=== PATIENT | female | born 1950 | race Caucasian/White ===

== ENCOUNTER 2016-09-27 23:00 | Inpatient (IN) | payer MEDICARE, OTHER ==
--- NOTE | ~2016-09-27 | HP ---
History And Physical [address] [address] NAME: ANN DEGROOT : 50 STATUS : ADM Mello PAT#: [id number] AGE: 66 ADM/REG DATE : 09/27/16 MR#: [id number] REPORT SERV DATE: 09/30/16 DICTATED BY: ADALID EDMONDSON DATE: 09/28/16 REPORT STATUS : Draft TRANSCRIBED BY: MODL DATE: 09/28/16 DATE OF ADMISSION: 09/27/2016 CHIEF COMPLAINT: A 66-year-old female presenting with nausea and vomiting. HISTORY OF PRESENT ILLNESS: The patient's history was obtained through careful interview with the patient coupled with review of [facility] medical records. The patient began to have nausea and vomiting around 09/21/2016. She has been trying to control this symptom, but it finally became so severe that she felt she had to come to the hospital for further evaluation. She describes intermittent diarrhea as well. No blood in stool or vomit. She describes abdominal pain, epigastric, radiating down toward the umbilicus, a cramping quality up to 8/10 severity. She has had subjective fevers and chills, severe diaphoresis. She describes slight shortness of breath. No cough. No chest pain. She has had a mild intermittent headache. She describes her rheumatoid arthritis is under poor control. REVIEW OF SYSTEMS: Otherwise, a 14-point review of systems was obtained was negative. PAST MEDICAL HISTORY: 1. Gastroparesis, seen by Dr. Martinez. 2. COPD/asthma seen by Dr. Thomas. 3. Hypertension. 4. Irritable bowel syndrome. 5. Gastroesophageal reflux disorder with hiatal hernia. 6. Rheumatoid arthritis/lupus seen by Dr. Pierce. 7. Elevated cholesterol. 8. Hepatitis a remotely. 9. Colon polyps. 10.ESBL Escherichia coli urinary tract infection. 11.Colitis. 12.Anxiety. PAST SURGICAL HISTORY: 1. Cervical spine surgery. 2. Lumbar spine surgery. 3. Left hip surgery. History And Physical [address] [address] NAME: ANN DEGROOT : 50 STATUS : ADM Mello PAT#: [id number] AGE: 66 ADM/REG DATE : 09/27/16 MR#: [id number] REPORT SERV DATE: 09/30/16 DICTATED BY: ADALID EDMONDSON DATE: 09/28/16 REPORT STATUS : Draft TRANSCRIBED BY: LAMONT DATE: 09/28/16 4. Cholecystectomy. 5. Appendectomy. 6. Right ankle surgery. ALLERGIES: TO PENICILLIN, NONSTEROIDAL ANTIINFLAMMATORY DRUGS, DROPERIDOL, AND SULFA MEDICATIONS. SOCIAL HISTORY: Quit smoking remotely. No alcohol abuse. Has been living with her common- law for 26 years. He is in good health. They live in [place], [place]. The patient has two grandchildren. FAMILY HISTORY: She had a son who was murdered. A strong family history of heart disease, cancer, and diabetes. CURRENT MEDICATIONS: Include: 1. Albuterol inhaler. 2. Xanax 1 mg p.o. four times a day. 3. Norvasc 10 mg p.o. daily. 4. Iron supplement. 5. Folic acid. 6. Coreg 12.5 mg p.o. b.i.d. 7. Vitamin B12. 8. Flexeril p.o. t.i.d. 9. Nexium 20 mg p.o. b.i.d. 10.Diflucan. 11.Prozac 40 mg p.o. daily. 12.Flonase. 13.Advair, inhaled twice a day. 14.Lasix 20 mg on Friday, Friday, and Friday. 15. 300 mg p.o. t.i.d. 16.Reglan. 17.Singulair 10 mg p.o. daily. 18.Zofran. 19.Endocet one tablet p.o. four times a day scheduled. 20.Potassium 20 mEq p.o. t.i.d. 21.Phenergan. 22.Sucralfate 1 g before meals and at bedtime. 23.Trazodone 100 mg at bedtime. 24.Incruse Ellipta inhaled daily. PHYSICAL EXAMINATION: VITAL SIGNS: Temperature 99.2, pulse 93, blood pressure 153/80, O2 sat 95% on room air. GENERAL: A pleasant, cooperative female who has some distress from her abdominal pain, nausea. HEENT: Pupils equal, round, and reactive to light. No conjunctival pallor. No scleral icterus. Nares are patent. Oropharynx is clear of obstruction. She has moist mucous membranes. History And Physical [address] [place]. [address] NAME: ANN DEGROOT : 50 STATUS : ADM Mello PAT#: [id number] AGE: 66 ADM/REG DATE : 09/27/16 MR#: [id number] REPORT SERV DATE: 09/30/16 DICTATED BY: ADALID EDMONDSON DATE: 09/28/16 REPORT STATUS : Draft TRANSCRIBED BY: LAMONT DATE: 09/28/16 NECK: Trachea midline. No thyromegaly. LYMPH: No cervical lymphadenopathy. No supraclavicular lymphadenopathy. No inguinal lymphadenopathy. RESPIRATORY: Clear to auscultation at bases. No wheezes, rales, or rhonchi. Normal respiratory effort. CARDIOVASCULAR: Regular rate and rhythm. No murmurs, rubs, or gallops. No extremity edema is appreciated. ABDOMEN: Significant epigastric abdominal pain but no guarding, no rebound. Nondistended. No hepatosplenomegaly. DERMATOLOGICAL: Warm and dry extremities. No pallor. No cyanosis. PSYCHIATRIC: Normal affect. Good mood. Alert and oriented x3. LABORATORY DATA: White blood cell count 11.2, hemoglobin 16, hematocrit 46, platelets 454. Sodium 135, potassium 4.3, chloride 102, bicarb 19, BUN 5, creatinine 0.7, glucose 164. Liver enzymes within normal limits. Lipase 85. ASSESSMENT AND PLAN: #, 1. Gastroparesis exacerbation, placed on IV Reglan, provide supportive care. 2. Diarrhea. Check Clostridium difficile toxin. 3. Rheumatoid arthritis. Check ESR, CRP. 4. Chronic obstructive pulmonary disease. Place on DuoNeb nebulizers. KPL/MODL Adalid Edmondson M.D. / [id number] CC: MD Parveen Aldrich M.D.
--- NOTE | ~2016-09-27 | DS ---
Discharge Summary [facility] [address] [place]. [address] NAME: ANN HOWELL : 50 STATUS : DIS IN PAT#: [id number] AGE: 66 ADM/REG DATE : 09/29/16 MR#: [id number] REPORT SERV DATE: 10/03/16 DICTATED BY: STONE RICHARDS DATE: 10/02/16 REPORT STATUS : Draft TRANSCRIBED BY: MODL DATE: 10/02/16 ADMISSION DATE: 09/29/2016 DISCHARGE DATE: 10/02/2016 REASON FOR ADMISSION: Abdominal pain, nausea, vomiting, gastroparesis exacerbation. HPI: Please refer Dr. Purcell's history and physical dated 09/28/2016 for complete details regarding the patient's admission. The patient was admitted to the Hospitalist Service for management of gastroparesis. HOSPITAL COURSE: The patient had an un complicated hospital course. She is benzo and narcotic dependent. She presented with nausea, vomiting, abdominal pain which had quickly resolved. KUB was obtained on 09/30/2016 which showed some increased gas in the colon, but no obstruction. Dr. Alvarenga had taken care of the patient for the first couple of days and I assumed care of this patient on 10/01/2016 at which point, her nausea, vomiting, and abdominal pain had resolved. She was on IV Reglan. She was tolerating regular diet. Discharge has been delayed because she was developing this leukocytosis of unknown etiology, got as high as 18,000. A procalcitonin level was unremarkable. UA was unremarkable. No sign of infection. She did have a very small ulcer that was healing on her upper back area, but certainly would not have been the cause of leukocytosis of 18,000. We continued to recheck CBCs and her white count is down to 11,000. It is resolving on its own without any intervention. Her leukocytosis is unclear as to what was the cause of leukocytosis, but at any rate she has reached maximal hospitalization. She is not febrile. She is nontoxic appearing and is requesting to go home. She will be discharged home today in a stable condition. DISCHARGE DIAGNOSES: 1. Gastroparesis exacerbation, now resolved. 2. Leukocytosis of unclear etiology, now resolving. 3. Diarrhea, pre admission, now resolved. 4. Hypokalemia, resolved. 5. Rheumatoid arthritis, stable. 6. Chronic obstructive pulmonary disease without exacerbation, stable. 7. Chronic benzo and narcotic dependency, stable. PROCEDURES: Include KUB. DISCHARGE MEDICATIONS: Include Linzess 145 mcg twice a day, Xanax 1 mg four times a day, amlodipine 10 mg at bedtime, Coreg 12.5 mg twice a day, vitamin D every 30 days, Flexeril 10 mg three times a day, Prozac 40 mg daily, Neurontin 300 mg three times a day, Reglan 10 mg p.r.n., montelukast 10 mg at bedtime, Nexium 20 mg twice a day, Phenergan 25 mg p.r.n., Carafate p.r.n., trazodone 100 mg at bedtime, Advair 500/50 one puff twice a day, Incruse Ellipta 1 puff daily, Ferrocite daily, Zofran p.r.n., Lasix p.r.n. swelling, Endocet 4 times a day scheduled for pain, K-Dur 20 mEq three times a day, fluticasone, albuterol. The patient was discharged today in a stable condition. She will be discharged home. She Discharge Summary [address] [address] NAME: ANN HOWELL : 50 STATUS : DIS IN PAT#: [id number] AGE: 66 ADM/REG DATE : 09/29/16 MR#: [id number] REPORT SERV DATE: 10/03/16 DICTATED BY: STONE RICHARDS DATE: 10/02/16 REPORT STATUS : Draft TRANSCRIBED BY: LAMONT DATE: 10/02/16 will follow up with her PCP. This is Dr. Stone Richards, spending over 30 minutes in discharge planning and coordination of care on Ms. Howell. CHLOE/LAMONT Stone Richards MD / [id number] CC: MD Parveen Cain M.D.
[~2016-09-27 23:00] MED LIST: ACCUNEB INH; ADVAIR INH; ALLERGY INJECTION SC; AMITIZA8 MCG PO; ASTELIN NAS; ASTEPRO0.15 % NAS; BENTYL10; BISR PR; CLEOCIN300 MG PO; COMBIVENT INH; COMP10B PO; COMP25R PR; COREG12 PO; COZ50 PO; DIAZIDE; FERROCITE PO; FLONASE NAS; FORTEO SC; IMITREX100 MG PO; KLOR-CON M2020 MEQ PO; L20 PO; LIBRAX PO; LIPITOR10 PO; LIPITOR40 PO; LORTAB10 PO; MACROBID PO; MAX25 PO; MORPHINE 15 MG TAB PO; MSCONT15 PO; NASONEX NAS; NEUR300 PO; NEXIUM40 PO; NORV10 PO; PCET PO; PR25 PO; PROAIR HFA INH; PROVENTSOL INH; PROZAC PO; PROZAC40 MG PO; PROZLIQ PO; REG PO; RESTASIS OPH; SINGULAIR1 PO; SPIRIVA INH; TRAZ100 PO; VALTREX1 GM PO; VALTREX5 PO; XANAX1 MG PO; XOPEN0.5ML INH; ZOFRAN8 PO; ZYRTEC ALLGY10 MG PO
[2016-09-28 02:16] LABS: ASCORBIC ACID (UR NOT ORDER) NEG (NEG); BILIRUBIN, URINE NEGATIVE (NEG); ER URINALYSIS TAT 0 Hrs 12 Mins; KETONE, URINE NEGATIVE (NEG); LEUKOCYTE ESTERASE(NOT OR NEG (NEG); NITRITE (URINE) NEG (NEG); WBC (NOT ORDERED) (RFLEX) 1 (0-5)
[2016-09-28 02:18] LABS: BASOPHILS 0.1 %; BASOPHILS ABSOLUTE 0.01 10/3/uL (0.0-0.16); EOSINOPHILS 0.1 %; EOSINOPHILS ABSOLUTE 0.01 10/3/uL (0.0-0.53); IMMATURE GRANULOCYTES 0.7 %; IMMATURE GRANULOCYTES ABSOLUTE 0.08 10/3/uL (0.0-0.11); LYMPHOCYTES 12.4 %; LYMPHOCYTES ABSOLUTE 1.39 10/3/uL (0.67-4.30); MEAN CORPUS HGB CONC 34.8 g/dL (32.0-36.0); MEAN CORPUSCULAR VOLUME 83.4 fL (80-100); MONOCYTES 4.7 %; MONOCYTES ABSOLUTE 0.53 10/3/uL (0.21-1.20); PLATELET COUNT 454 10/3/uL (150-400); RBC DISTRIBUTION WIDTH 14.3 % (12.0-16.0); RED CELL COUNT 5.55 10/6/uL (4.0-5.6)
[2016-09-28 02:21] LABS: HEMATOCRIT 46.3 % (36.0-48.0); HEMOGLOBIN 16.1 g/dL (12.0-16.0); MANUAL DIFF NO %; WHITE BLOOD CELLS 11.2 10/3/uL (4.5-10.5)
[2016-09-28 02:34] LABS: A/G RATIO 0.8 (0.7-1.9); ALBUMIN 3.8 G/DL (3.5-5.0); ALKALINE PHOSPHATASE 155 U/L (45-117); BUN (BLOOD UREA NITROGEN) 5 MG/DL (6-23); CALCIUM, SERUM 9.8 MG/DL (8.5-10.4); CHLORIDE, SERUM 102 MMOL/L (96-112); CO2 (CARBON DIOXIDE) 19 MMOL/L (24-34); GFR AFRICAN AMERICAN 105 ML/MIN (>=60); GFR NON AFRICAN AMERICAN 90 ML/MIN (>=60); GLOBULIN 4.8 G/DL (2.5-4.1); GLUCOSE, SERUM 164 MG/DL (60-99); POTASSIUM, SERUM 4.3 MMOL/L (3.5-5.3); SGOT(AST) 7 U/L (5-40); SGPT(ALT) 10 U/L (5-65); SODIUM, SERUM 135 MMOL/L (135-148); TOTAL BILIRUBIN 0.3 MG/DL (0-1.2); TOTAL PROTEIN 8.6 G/DL (6.0-8.5)
[2016-09-28] MEDS ORDERED: REG PO (04:33)
[2016-09-28] MEDS ORDERED: INCRUSE ELLI62.5 MCG INH (04:34)
[2016-09-28] MEDS ORDERED: SUCR PO (04:34)
[2016-09-28] MEDS ORDERED: NEXIUM20 M1 PO (04:35)
[2016-09-28] MEDS ORDERED: FERROCITE PO (04:35)
[2016-09-28] MEDS ORDERED: FLEX PO (04:35)
[2016-09-28] MEDS ORDERED: COREG12 PO (04:35)
[2016-09-28] MEDS ORDERED: B121000P IM/SC (04:36)
[2016-09-28] MEDS ORDERED: PR25 PO (04:36)
[2016-09-28] MEDS ORDERED: TRAZ100 PO (04:36)
[2016-09-28] MEDS ORDERED: SINGULAIR1 PO (04:37)
[2016-09-28] MEDS ORDERED: FLUCON150 PO (04:37)
[2016-09-28] MEDS ORDERED: L20 PO (04:37)
[2016-09-28] MEDS ORDERED: ZOFRANODT8 SL (04:37)
[2016-09-28] MEDS ORDERED: XANAX1 MG PO (04:38)
[2016-09-28] MEDS ORDERED: ENDOCET1 TA1 PO (04:38)
[2016-09-28] MEDS ORDERED: NORV10 PO (04:38)
[2016-09-28] MEDS ORDERED: NEUR300 PO (04:39)
[2016-09-28] MEDS ORDERED: ADVAIR INH (04:39)
[2016-09-28] MEDS ORDERED: KDUR20 PO (04:39)
[2016-09-28] MEDS ORDERED: PROZAC40 MG PO (04:40)
[2016-09-28] MEDS ORDERED: FLONASE NAS (04:41)
[2016-09-28] MEDS ORDERED: VENTOLIN HFA INH (04:42)
[2016-09-28 12:39] LABS: BASOPHILS 0.1 %; BASOPHILS ABSOLUTE 0.02 10/3/uL (0.0-0.16); EOSINOPHILS 0.3 %; EOSINOPHILS ABSOLUTE 0.04 10/3/uL (0.0-0.53); HEMOGLOBIN 13.7 g/dL (12.0-16.0); IMMATURE GRANULOCYTES 1.1 %; IMMATURE GRANULOCYTES ABSOLUTE 0.16 10/3/uL (0.0-0.11); LYMPHOCYTES ABSOLUTE 2.99 10/3/uL (0.67-4.30); MEAN CORPUS HGB CONC 34.3 g/dL (32.0-36.0); MEAN CORPUSCULAR VOLUME 84.5 fL (80-100); MEAN PLATELET VOLUME 8.7 fL (9.2-13.0); MONOCYTES 12.6 %; MONOCYTES ABSOLUTE 1.88 10/3/uL (0.21-1.20); NEUTROPHILS 65.9 %; NEUTROPHILS ABSOLUTE 9.88 10/3/uL (2.02-8.40); PLATELET COUNT 389 10/3/uL (150-400); RBC DISTRIBUTION WIDTH 14.6 % (12.0-16.0); RED CELL COUNT 4.72 10/6/uL (4.0-5.6)
[2016-09-28 12:41] LABS: HEMATOCRIT 39.9 % (36.0-48.0); MANUAL DIFF NO %
[2016-09-28 12:46] LABS: PARTIAL THROMBO TIME 29.7 SEC (22.5-37.2); PROTIME (NOT ORD) 13.3 SEC (12.0-14.5)
[2016-09-28 12:58] LABS: C-REACTIVE PROTEIN 4.3 MG/L (<8.0)
[2016-09-28 13:01] LABS: A/G RATIO 0.8 (0.7-1.9); ALBUMIN 3.3 G/DL (3.5-5.0); ALKALINE PHOSPHATASE 123 U/L (45-117); BUN (BLOOD UREA NITROGEN) 5 MG/DL (6-23); CALCIUM, SERUM 8.5 MG/DL (8.5-10.4); CHLORIDE, SERUM 102 MMOL/L (96-112); CO2 (CARBON DIOXIDE) 23 MMOL/L (24-34); CREATININE 0.65 MG/DL (0.55-1.02); GFR AFRICAN AMERICAN 107 ML/MIN (>=60); GFR NON AFRICAN AMERICAN 93 ML/MIN (>=60); GLOBULIN 4.1 G/DL (2.5-4.1); GLUCOSE, SERUM 105 MG/DL (60-99); SGOT(AST) 6 U/L (5-40); SGPT(ALT) 11 U/L (5-65); SODIUM, SERUM 133 MMOL/L (135-148); TOTAL BILIRUBIN 0.2 MG/DL (0-1.2); TOTAL PROTEIN 7.4 G/DL (6.0-8.5)
[2016-09-28 14:09] LABS: SED RATE 16 MM/HR (0-20)
[2016-09-30 06:22] LABS: BASOPHILS 0.2 %; BASOPHILS ABSOLUTE 0.04 10/3/uL (0.0-0.16); EOSINOPHILS 1.5 %; EOSINOPHILS ABSOLUTE 0.27 10/3/uL (0.0-0.53); HEMATOCRIT 40.2 % (36.0-48.0); HEMOGLOBIN 13.4 g/dL (12.0-16.0); IMMATURE GRANULOCYTES 0.4 %; IMMATURE GRANULOCYTES ABSOLUTE 0.08 10/3/uL (0.0-0.11); LYMPHOCYTES 14.9 %; LYMPHOCYTES ABSOLUTE 2.76 10/3/uL (0.67-4.30); MEAN CORPUS HGB CONC 33.3 g/dL (32.0-36.0); MEAN CORPUSCULAR HEMOGLOB 28.8 pg (26.0-34.0); MEAN CORPUSCULAR VOLUME 86.3 fL (80-100); MEAN PLATELET VOLUME 8.6 fL (9.2-13.0); MONOCYTES 9.5 %; MONOCYTES ABSOLUTE 1.77 10/3/uL (0.21-1.20); NEUTROPHILS 73.5 %; NEUTROPHILS ABSOLUTE 13.64 10/3/uL (2.02-8.40); PLATELET COUNT 350 10/3/uL (150-400); RBC DISTRIBUTION WIDTH 14.9 % (12.0-16.0); RED CELL COUNT 4.66 10/6/uL (4.0-5.6); WHITE BLOOD CELLS 18.6 10/3/uL (4.5-10.5)
[2016-09-30 06:23] LABS: MANUAL DIFF NO %
[2016-09-30 06:36] LABS: BUN (BLOOD UREA NITROGEN) 4 MG/DL (6-23); CALCIUM, SERUM 8.2 MG/DL (8.5-10.4); CHLORIDE, SERUM 106 MMOL/L (96-112); CO2 (CARBON DIOXIDE) 26 MMOL/L (24-34); CREATININE 0.53 MG/DL (0.55-1.02); GFR AFRICAN AMERICAN 115 ML/MIN (>=60); GFR NON AFRICAN AMERICAN 99 ML/MIN (>=60); GLUCOSE, SERUM 95 MG/DL (60-99)
[2016-09-30 06:37] LABS: POTASSIUM, SERUM 3.1 MMOL/L (3.5-5.3); SODIUM, SERUM 140 MMOL/L (135-148)
[2016-09-30 13:41] LABS: PROCALCITONIN <0.05 ng/mL (<0.5)
[2016-09-30 14:17] LABS: C-REACTIVE PROTEIN 46.7 MG/L (<8.0)
[2016-10-01 13:36] LABS: BASOPHILS 0.1 %; BASOPHILS ABSOLUTE 0.02 10/3/uL (0.0-0.16); EOSINOPHILS 1.5 %; EOSINOPHILS ABSOLUTE 0.23 10/3/uL (0.0-0.53); HEMATOCRIT 38.5 % (36.0-48.0); HEMOGLOBIN 12.7 g/dL (12.0-16.0); IMMATURE GRANULOCYTES 0.3 %; IMMATURE GRANULOCYTES ABSOLUTE 0.05 10/3/uL (0.0-0.11); LYMPHOCYTES 15.2 %; MEAN CORPUSCULAR HEMOGLOB 28.7 pg (26.0-34.0); MEAN CORPUSCULAR VOLUME 86.9 fL (80-100); MEAN PLATELET VOLUME 9.1 fL (9.2-13.0); MONOCYTES 7.3 %; MONOCYTES ABSOLUTE 1.15 10/3/uL (0.21-1.20); NEUTROPHILS 75.6 %; NEUTROPHILS ABSOLUTE 11.93 10/3/uL (2.02-8.40); PLATELET COUNT 385 10/3/uL (150-400); RBC DISTRIBUTION WIDTH 14.7 % (12.0-16.0); RED CELL COUNT 4.43 10/6/uL (4.0-5.6); WHITE BLOOD CELLS 15.8 10/3/uL (4.5-10.5)
[2016-10-01 13:40] LABS: MANUAL DIFF NO %
[2016-10-01 13:57] LABS: BUN (BLOOD UREA NITROGEN) 5 MG/DL (6-23); CALCIUM, SERUM 7.9 MG/DL (8.5-10.4); CHLORIDE, SERUM 107 MMOL/L (96-112); CO2 (CARBON DIOXIDE) 25 MMOL/L (24-34); CREATININE 0.45 MG/DL (0.55-1.02); GFR AFRICAN AMERICAN 121 ML/MIN (>=60); GFR NON AFRICAN AMERICAN 104 ML/MIN (>=60); POTASSIUM, SERUM 3.5 MMOL/L (3.5-5.3); SODIUM, SERUM 139 MMOL/L (135-148)
[2016-10-01 13:58] LABS: GLUCOSE, SERUM 117 MG/DL (60-99)
[2016-10-01 13:59] LABS: PHOSPHORUS, SERUM 1.3 MG/DL (2.5-4.5)
[2016-10-02 06:03] LABS: BASOPHILS 0.3 %; BASOPHILS ABSOLUTE 0.03 10/3/uL (0.0-0.16); EOSINOPHILS 3.4 %; HEMATOCRIT 38.4 % (36.0-48.0); HEMOGLOBIN 12.6 g/dL (12.0-16.0); IMMATURE GRANULOCYTES 0.3 %; IMMATURE GRANULOCYTES ABSOLUTE 0.04 10/3/uL (0.0-0.11); LYMPHOCYTES 20.1 %; LYMPHOCYTES ABSOLUTE 2.39 10/3/uL (0.67-4.30); MEAN CORPUS HGB CONC 32.8 g/dL (32.0-36.0); MEAN CORPUSCULAR HEMOGLOB 28.6 pg (26.0-34.0); MEAN CORPUSCULAR VOLUME 87.1 fL (80-100); MONOCYTES 7.5 %; MONOCYTES ABSOLUTE 0.89 10/3/uL (0.21-1.20); NEUTROPHILS 68.4 %; NEUTROPHILS ABSOLUTE 8.15 10/3/uL (2.02-8.40); PLATELET COUNT 386 10/3/uL (150-400); RBC DISTRIBUTION WIDTH 14.7 % (12.0-16.0); RED CELL COUNT 4.41 10/6/uL (4.0-5.6); WHITE BLOOD CELLS 11.9 10/3/uL (4.5-10.5)
[2016-10-02 06:04] LABS: MANUAL DIFF NO %
[2016-10-02 06:30] LABS: BUN (BLOOD UREA NITROGEN) 6 MG/DL (6-23); CALCIUM, SERUM 8.4 MG/DL (8.5-10.4); CHLORIDE, SERUM 110 MMOL/L (96-112); CO2 (CARBON DIOXIDE) 25 MMOL/L (24-34); CREATININE 0.42 MG/DL (0.55-1.02); GFR AFRICAN AMERICAN 124 ML/MIN (>=60); GFR NON AFRICAN AMERICAN 107 ML/MIN (>=60); GLUCOSE, SERUM 103 MG/DL (60-99); PHOSPHORUS, SERUM 1.7 MG/DL (2.5-4.5); POTASSIUM, SERUM 3.6 MMOL/L (3.5-5.3); SODIUM, SERUM 142 MMOL/L (135-148)
== END 2016-10-02 13:35 | disposition home or self-care (01) | DRG 392 ==
LOC: ER 23:00 → 4SO 23:59
PROVIDERS: Hospitalist; Internal Medicine; Nurse Practitioner
DX: K31.84 Gastroparesis (principal); J44.9 Chronic obstructive pulmonary disease, unspecified; L98.429 Non-pressure chronic ulcer of back with unspecified severity; F19.20 Other psychoactive substance dependence, uncomplicated; T40.2X5A Adverse effect of other opioids, initial encounter; I10 Essential (primary) hypertension; K58.9 Irritable bowel syndrome, unspecified; M06.9 Rheumatoid arthritis, unspecified; K21.9 Gastro-esophageal reflux disease without esophagitis; K44.9 Diaphragmatic hernia without obstruction or gangrene; E78.00 Pure hypercholesterolemia, unspecified; Z86.010 Personal history of colon polyps; F41.9 Anxiety disorder, unspecified; Z88.0 Allergy status to penicillin; Z88.8 Allergy status to other drugs, medicaments and biological substances; Z88.2 Allergy status to sulfonamides; Z87.891 Personal history of nicotine dependence; Z79.891 Long term (current) use of opiate analgesic; D72.829 Elevated white blood cell count, unspecified; E87.6 Hypokalemia
CPT/HCPCS: 74000; 80048; 80053; 81001; 82150; 82962; 83036; 83605; 83690; 83735; 84100; 84132; 84145; 84443; 85025; 85610; 85652; 85730; 86140; 94640; 96374; 96375; 99285; A9270-GY; J2405; J2550; J2765

== ENCOUNTER 2016-11-03 19:02 | Inpatient (IN) | payer MEDICARE, OTHER ==
--- NOTE | ~2016-11-03 | CN ---
Consultation Report [facility] [address] [place]. [address] NAME: ANN HOWELL : 50 STATUS : ADM IN PAT#: [id number] AGE: 66 ADM/REG DATE : 11/04/16 MR#: [id number] REPORT SERV DATE: 11/04/16 DICTATED BY: JUAN A MCGOWAN DATE: 11/04/16 REPORT STATUS : Draft TRANSCRIBED BY: MODL DATE: 11/04/16 GI CONSULTATION DATE OF CONSULTATION: 11/04/2016 REASON FOR CONSULTATION: Evaluation and management of nausea, vomiting, epigastric abdominal pain, diarrhea, intermittent coffee-grounds emesis. HISTORY OF PRESENT ILLNESS: Ms. Ann Howell is a 66-year-old female patient, who is known to Dr. Liz Martinez in the outpatient setting, who presents to [facility] with a chief complaint of nausea, vomiting, diarrhea, epigastric pain, intermittent coffee- grounds emesis. She has a history of hypertension, COPD, hiatal hernia, GERD, gastroparesis, anxiety, and rheumatoid arthritis. She came in to [facility] on 11/03/2016 with a chief complaint of nausea, vomiting, diarrhea, and epigastric pain. She states that her symptoms have been ongoing for three to four weeks. She states that she came in for "relief." She states that she has epigastric abdominal pain which she states is chronically present, but over the past few weeks has been intractable and severe in nature. She has had associated nausea with vomiting. Initially, she states that her emesis is bilious. She states that she does have intermittent coffee-ground material. The last time she passed any coffee-ground, she states was one day "last week." She has had diarrhea, but she states that her diarrhea is not melena or no hematochezia intermixed with that. She states that her diarrhea had a terrible odor to it as well as she has experienced some dysuria. She had a CT scan on admission, which did not show any acute GI abnormality. She has not had any further diarrhea, nausea, or vomiting since being admitted. She is somewhat somnolent this morning. I can awaken her. She answer some of my questions, but will fall asleep mid sentence. She states that she feels somewhat better. I have discussed with her that we will plan on upper endoscopy on 11/05/2016. I did discuss the risks, benefits, alternatives, complications with her to include, but not limited to risk of bleeding, perforation, infection, reaction to medication as well as cardiac and pulmonary side effects. She is agreeable to proceed. Her last EGD was done by Dr. Benitez inpatient in 03/2015 that showed normal esophagus, hiatal hernia, which was small in size with normal mucosa in the entire stomach which she biopsied. Normal examined duodenum, which she also biopsied. She did undergo a colonoscopy same day showing erythema of the TI, status post biopsy. Normal mucosa in the entire colon which was biopsied. She had two polyps in the transverse colon that were removed and biopsied. Pathology from that exam, the duodenum was normal with no evidence of celiac stomach. H. pylori negative. Antral and fundic mucosa with mild chronic gastritis seen. No metaplasia or dysplasia. Terminal ileum showed mild active ileitis, no granulomas. Colon biopsies which were random and within normal limits, and the polyps were tubular adenoma without high-grade dysplasia. Differential diagnosis for her with active ileitis includes NSAID-related injury versus Crohn. PAST MEDICAL HISTORY: She has a past medical history that is positive for hypertension, COPD, small hiatal hernia, colon polyps, GERD, anxiety, rheumatoid arthritis, gastroparesis, irritable bowel syndrome, elevated cholesterol, ESBL, UTI, and colitis. Consultation Report [address] [place]. [address] NAME: ANN HOWELL : 50 STATUS : [facility]#: [id number] AGE: 66 ADM/REG DATE : 11/04/16 MR#: [id number] REPORT SERV DATE: 11/04/16 DICTATED BY: JUAN A MCGOWAN DATE: 11/04/16 REPORT STATUS : Draft TRANSCRIBED BY: MODElvin DATE: 11/04/16 SURGICAL HISTORY: Cervical spine surgery, lumbar spine surgery, left hip surgery, cholecystectomy, appendectomy, right ankle surgery. SOCIAL HISTORY: Past tobacco. No alcohol. No illicits. Lives independently with her common-law . FAMILY HISTORY: Noncontributory from a GI standpoint. ALLERGIES: LISTED TO AMOXICILLIN, NSAIDS, AUGMENTIN, CEFTAZIDIME, ADHESIVE, AND DROPERIDOL. HOME MEDICATIONS: Xanax, Norvasc, Ferrocite, Coreg, Duricef, vitamin B12, Nexium, Advair, Neurontin, Levsin, Cozaar, Reglan, Zofran, Endocet, Compazine, Phenergan, Desyrel, and Incruse Ellipta. REVIEW OF SYSTEMS: Somewhat limited secondary to the patient's groggy state. PHYSICAL EXAMINATION: VITAL SIGNS: Temperature 97.8, pulse 77, respirations 16, blood pressure 135/71. NEURO: Reveals a somnolent female, resting in bed. She does awaken and answer questions. She is groggy and falls back asleep multiple times during assessment. GENERAL: She is cooperative when she is awake. She is in no acute distress. She knows who she is, where she is, and the year. HEAD, EARS, EYES, NOSE, AND THROAT: Anicteric. Pupils equal, round, reactive to light and accommodation. Normocephalic, atraumatic. NECK: No JVD. No palpable nodes. LUNGS: Diminished in the bases. Clear in the upper lobes. Shallow inspiratory effort exhibited. CARDIOVASCULAR SYSTEM: Regular rate and rhythm. ABDOMEN: Soft, nondistended, nontender with active bowel sounds. No rebound or guarding elicited on exam. EXTREMITIES: No edema. Normal distal pulses. SKIN: Warm, dry, and intact. PERTINENT LABORATORY DATA: Sodium 139, potassium is 2.7, BUN is 4, creatinine 0.52. White count 11, hemoglobin 12.6, hematocrit 37.8, platelets 404. INR of 1.1. Total bilirubin 0.7, alkaline phosphatase 137, ALT 14, AST 12, lipase 47. ASSESSMENT: 1. Nausea, vomiting (intractable), question if this could be a gastroparesis flare. 2. Intermittent coffee-grounds emesis. 3. Diarrhea. 4. Epigastric abdominal pain. 5. History of gastroparesis. Consultation Report [facility] [id number] [place]. [address] NAME: ANN HOWELL : 50 STATUS : [facility]#: [id number] AGE: 66 ADM/REG DATE : 11/04/16 MR#: [id number] REPORT SERV DATE: 11/04/16 DICTATED BY: JUAN A MCGOWAN DATE: 11/04/16 REPORT STATUS : Draft TRANSCRIBED BY: LAMONT DATE: 11/04/16 6. History of narcotic and benzo dependence. 7. Hypokalemia. 8. Anxiety and depression. PLAN: 1. Clear liquid diet, n.p.o. after midnight. 2. Stool studies. 3. Change Reglan to IV. 4. Continue PPI drip. 5. She will undergo EGD in the morning with Dr. Perez. I did discuss the risks, benefits, alternatives, complications with her and she is agreeable to proceed. ELIZABETH/LAMONT Juan A YVONNE Witt / [id number] CC: MD Parveen Cain M.D.
--- NOTE | ~2016-11-03 | DS ---
Discharge Summary [facility] [address] [place]. [address] NAME: ANN DEGROOT : 50 STATUS : DIS IN PAT#: [id number] AGE: 66 ADM/REG DATE : 11/04/16 MR#: [id number] REPORT SERV DATE: 11/08/16 DICTATED BY: AYDIN FALLON DATE: 11/07/16 REPORT STATUS : Draft TRANSCRIBED BY: MODL DATE: 11/07/16 ADMISSION DATE: 11/04/2016 DISCHARGE DATE: 11/07/2016 DISCHARGE DIAGNOSES: 1. Clostridium difficile diarrhea. 2. Gastroparesis, nausea, and vomiting. 3. Abdominal pain, epigastric. 4. Intermittent coffee-grounds emesis. 5. Chronic narcotic and benzodiazepine dependence. 6. Urinary tract infection, E. coli, present on admission. 7. Hypokalemia, resolved. DISCHARGE MEDICATIONS: As follows: Norvasc 10 mg daily; carvedilol 12.5 mg p.o. twice a day; gabapentin 300 mg three times a day; Cozaar 100 mg daily; Reglan 5 mg p.o. a.c. and h.s., prescription written; Compazine 10 mg every six hours; increased Ellipta one puff inhaled daily; Florastor one cap p.o. twice a day, prescription written; trazodone 50 mg two tabs at bedtime; Advair Diskus 500/50 one puff inhaled twice a day; Vancocin 125 mg p.o. four times a day for 10 days, then twice a day for 10 days, then once a day for seven days, prescription written; Levsin 0.125 mg three times a day; Xanax 1 mg three times a day, and I have instructed her to begin a weaning process of this medicine with followup with her primary care; Endocet 7.5/325 one tablet every six hours p.r.n. for pain; Zofran 8 mg every six hours p.r.n. for nausea; vitamin B12 of 1000 mcg IM every 30 days; Fioricet one tab daily; and Phenergan 25 mg twice a day p.r.n. for nausea. HISTORY OF PRESENT ILLNESS: This is a 66-year-old female who presented with nausea, vomiting, diarrhea, and epigastric pain. Please see initial H and P of Dr. Rush Rausch as patient is admitted to the Hospitalist Service for further evaluation and treatment. She was given IV hydration. Lab work was ordered and followed. Electrolytes were replaced. CONSULTANTS DURING THIS ADMISSION: Include GI, Nghia Witt, and Dr. Perez. PROCEDURES AND IMAGING DURING THIS ADMISSION: Include an initial CT of the abdomen and pelvis showing no acute abdominal or pelvic pathology and an EGD performed on 11/05/2016 that was within normal limits but showing a small hiatal hernia. Biopsies were taken. CONTINUATOIN OF THE PATIENT'S HOSPITAL COURSE: The patient was seen by GI who began to set her up for the above described upper endoscopy test. She was given symptomatic treatment with antiemetics, fluid, and Reglan for nausea and vomiting and had been started on some empiric antibiotic therapy initially with Levaquin and Flagyl and also a PPI had been added initially. She continued to have some difficulty with nausea but her vomiting seemed to subside after the EGD, but she did continue to have worsening profuse diarrhea. A Clostridium difficile test was done which came back positive, and she stated she did have a history of Clostridium difficile in the past. Her Levaquin and Flagyl were discontinued, and she was started on Vancocin p.o. along with Florastor caps and her PPI therapy was Discharge Summary [address] [address] NAME: ANN DEGROOT : 50 STATUS : DIS IN PAT#: [id number] AGE: 66 ADM/REG DATE : 11/04/16 MR#: [id number] REPORT SERV DATE: 11/08/16 DICTATED BY: AYDIN FALLON DATE: 11/07/16 REPORT STATUS : Draft TRANSCRIBED BY: LAMONT DATE: 11/07/16 discontinued given the risk of C. diff with PPI, had a lengthy and informative discussion with the patient about the need for weaning off her benzodiazepines and in the future weaning off her narcotic pain medicines as well and we began that process here in the hospital. She began to slowly tolerate a diet, this was advanced. She was able to be ambulated. She began to have semi-formed stools and was felt safe for discharge home on 11/07/2016 with the above-described medication list. She will follow up with her primary care in three weeks and follow up with her GI in four to six weeks. Questions were answered extensively at bedside. The patient was in agreement with all plans going forward. Please note, greater than 30 minutes was spent on this discharge for medication teaching, followup planning, and further disposition. DICTATED BY: Micah Roach NP DICTATED FOR: Aydin Fallon MD [facility]/MODL Micah Roach NP Aydin Fallon MD / [id number] CC: MD Parveen Nuñez M.D.
--- NOTE | ~2016-11-03 | HP ---
History And Physical [facility] [address] [place]. [address] NAME: ANN HOWELL : [birth year] STATUS : ADM Mello PAT#: [id number] AGE: 66 ADM/REG DATE : 11/03/16 MR#: [id number] REPORT SERV DATE: 11/04/16 DICTATED BY: RUSH CLEMENS DATE: 11/04/16 REPORT STATUS : Draft TRANSCRIBED BY: MODL DATE: 11/04/16 DATE OF ADMISSION: 11/03/2016 CHIEF COMPLAINT: Nausea, vomiting, diarrhea, with epigastric pain. HISTORY OF PRESENT ILLNESS: This is a 66-year-old female with a history of hypertension, COPD, hiatal hernia, gastroesophageal reflux disease, anxiety disorder, and rheumatoid arthritis, who presents to the emergency room at [facility] with the above-mentioned complaint. History is obtained from the patient and reviewing data available on the [facility] system. According to available data, Mrs. Howell says she had been sick since last Friday. It all started with epigastric pain, which she says was pretty severe, 8/10 to 9/10. This was also associated with nausea with vomiting. She says the vomitus contained greenish bilious stuff along with coffee-ground material. As the week progressed, she started having increasing diarrhea, which she says was mostly black as well. This was also malodorous according to her. She says she did not see any blood in it, especially bright red blood. During this time, she also had dysuria. In the last day or so, the epigastric pain, the vomiting, and the diarrhea went on unabated, and she finally decided to come to the emergency room because she could not keep anything down and had this diarrhea as well. In the emergency room, initial workup including CT scan of the abdomen and pelvis did not reveal any acute diverticulitis or other abnormalities. However, workup did show she had hypokalemia, and she had a urinary tract infection as well. Hospitalist Service is asked to admit her for further evaluation of her coffee-grounds emesis and black tarry stools. At the time of my evaluation, she denied any chest pain, palpitations, or orthopnea. She had no cough, hemoptysis, night sweats, or weight loss. She has not had any falls or loss of consciousness. No history of fevers, chills, nausea, vomiting, diarrhea. No history of any obvious bleeding according to her from anywhere. No other history of recent travel or exposures other than those mentioned above. PAST MEDICAL HISTORY: Significant for history of hypertension, COPD, hiatal hernia, history of gastroesophageal reflux disease, anxiety disorder, and rheumatoid arthritis. SOCIAL HISTORY: She denies using tobacco, alcohol, or drugs of recreation. FAMILY HISTORY: Noncontributory. MEDICATIONS: At home were reviewed by me in the chart today and reordered by me. REVIEW OF SYSTEMS: As in history of present illness. All other systems were reviewed in detail and are quite unremarkable. PHYSICAL EXAMINATION: History And Physical [address] [address] NAME: ANN HOWELL : [birth year] STATUS : ADM Mello PAT#: [id number] AGE: 66 ADM/REG DATE : 11/03/16 MR#: [id number] REPORT SERV DATE: 11/04/16 DICTATED BY: RUSH CLEMENS DATE: 11/04/16 REPORT STATUS : Draft TRANSCRIBED BY: LAMONT DATE: 11/04/16 GENERAL: This is a pleasant 66-year-old, not in any acute distress. HEENT: Head is atraumatic, normocephalic. She is alert, awake, oriented to time, place, and person. Her pupils are equal and reacting to light and accommodating. External ocular muscles are intact. Membranes moist and pink. Sclerae are nonicteric. NECK: Supple with no jugular venous distention, lymphadenopathy, or thyromegaly. LUNGS: Clear to auscultation with no wheezes, rubs, or crackles. HEART: Heart sounds were regular with no murmurs, rubs, or gallops. ABDOMEN: Soft, nontender. Bowel sounds are present. EXTREMITIES: Showed no cyanosis, clubbing, or edema. NEUROLOGIC: Grossly intact. No focal sensory or motor deficits. Higher functions appeared intact. She could move all her extremities. VITAL SIGNS: Her vital signs today showed a temperature of 97.8, pulse was 83, respirations 20 a minute, and blood pressure upon arrival was 135/71. Oxygen saturations were 97% on 2 L of oxygen via nasal cannula. LABORATORY DATA: Reviewed on the [facility] system showed a procalcitonin of less than 0.05. Sodium was 136, potassium 2.4, chloride 99, CO2 of 29. BUN was 6 with a creatinine was 0.61 and blood glucose was 109. Her alkaline phosphatase was 161, ALT and AST were within normal limits and lipase was 47. CBC revealed a white blood cell count of 12,800, normal hemoglobin and hematocrit of 14 and 41.1, MCV was 84.4, and platelet count was 436. Urinalysis showed moderate leukocyte esterase, nitrite was negative. There were 14 wbc's and rare bacteria. Films of the CT scan of the abdomen and pelvis were reviewed by me on the PACS today and interpreted by me. Official radiology comments were also noted. There is no intraabdominal or intrapelvic pathology at this time. IMPRESSION: 1. Severe intractable nausea, vomiting, and diarrhea along with coffee-grounds emesis. 2. Epigastric pain. 3. Upper gastrointestinal bleeding. 4. Hypokalemia. 5. Urinary tract infection. 6. Hypertension. 7. Chronic obstructive pulmonary disease. 8. Hiatal hernia. 9. Gastroesophageal reflux disease. 10.Anxiety disorder. 11.History of benzodiazepine and narcotic dependence. 12.Rheumatoid arthritis. PLAN: We will admit Mrs Howell to the Hospitalist Service with telemetry for a 24-hour observation period. We will start her on a Protonix infusion, keep her n.p.o., and go ahead and consult csr, Dr. Martinez to see her in the morning. It is quite possible that this could be also Clostridium difficile colitis, we will check as well. We will also start her on IV fluids for volume resuscitation, give her 40 mEq IV intravenously now, and then with fluids as well. We will check her chemistry electrolytes in the morning and replete as needed again. We will follow hemoglobin and hematocrit levels, and transfuse as needed. Meanwhile, we will obtain cultures, start her on empiric IV antibiotics. We will History And Physical [address] [address] NAME: ANN HOWELL : 50 STATUS : ADM Mello PAT#: [id number] AGE: 66 ADM/REG DATE : 11/03/16 MR#: [id number] REPORT SERV DATE: 11/04/16 DICTATED BY: RUSH CLEMENS DATE: 11/04/16 REPORT STATUS : Draft TRANSCRIBED BY: LAMONT DATE: 11/04/16 control blood sugars with NovoLog given subcutaneously per sliding scale, maximize the bronchodilator treatments and supplemental oxygen therapy. She will be placed on SCDs for DVT prophylaxis while here as well. Please see today's orders for details. I have discussed the above plans with the patient. Questions were answered, and she is agreeable to the above recommendations. Hospitalist Service will be following her during her stay here. /LAMONT Rush Clemens M.D. / [id number] CC: Harvey Phillips, DO
--- NOTE | ~2016-11-03 | EGD ---
EGD REPORT [facility] [address] [place]. [address] NAME: ANN HOWELL : 50 STATUS : ADM IN PAT#: [id number] AGE: 66 ADM/REG DATE : 11/04/16 MR#: [id number] REPORT SERV DATE: 11/05/16 DICTATED BY: CUONG KAISER DATE: 11/05/16 REPORT STATUS : Draft TRANSCRIBED BY: [facility] DATE: 11/05/16 Endoscopy Center Patient Name: Ann Howell Date of : 1950 Attending MD: CUONG KAISER MD Procedure Date No Time: 11/05/2016 Procedure: Upper GI endoscopy Indications: Epigastric abdominal pain, Persistent vomiting of unknown cause Medicines: Monitored Anesthesia Care Complications: No immediate complications. Estimated blood loss: Minimal. Procedure: Pre-Anesthesia Assessment: - ASA Grade Assessment: III - A patient with severe systemic disease. After obtaining informed consent, the endoscope was passed under direct vision. Throughout the procedure, the patient's blood pressure, pulse, and oxygen saturations were monitored continuously. The GIF [id number] was introduced through the mouth, and advanced to the second part of duodenum. The upper GI endoscopy was accomplished without difficulty. The patient tolerated the procedure well. Findings: The examined esophagus was normal. The entire examined stomach was normal. Biopsies were taken with a cold forceps for Helicobacter pylori testing. Estimated blood loss was minimal. The examined duodenum was normal. Biopsies were taken with a cold forceps for evaluation of celiac disease. Estimated blood loss was minimal. A small hiatus hernia was present. The exam was otherwise without abnormality. Impression: - Normal stomach. Biopsied. - Normal examined duodenum. Biopsied. - Hiatus hernia. - The examination was otherwise normal. Recommendation: - Return patient to hospital [facility] for ongoing care. - Clear liquid diet and then advance diet as tolerated by symptoms. Procedure Code(s): --- Professional --- EGD REPORT [facility] [address] [place]. [address] NAME: ANN HOWELL : 50 STATUS : ADM IN [facility]#: [id number] AGE: 66 ADM/REG DATE : 11/04/16 MR#: [id number] REPORT SERV DATE: 11/05/16 DICTATED BY: CUONG KAISER DATE: 11/05/16 REPORT STATUS : Draft TRANSCRIBED BY: [employer] DATE: 11/05/16 [id number], Esophagogastroduodenoscopy, flexible, transoral; with biopsy, single or multiple Diagnosis Code(s): --- Professional --- K44.9, Diaphragmatic hernia without obstruction or gangrene R10.13, Epigastric pain R11.10, Vomiting, unspecified CPT copyright 2013 [employer]. All rights reserved. The codes documented in this report are preliminary and upon clinical nutritionist review may be revised to meet current compliance requirements. Cuong Kaiser MD CUONG KAISER MD 11/05/2016 8:06 AM This report has been signed electronically. Number of Addenda: 0 Note Initiated On: 11/05/2016 6:44 AM Scope Withdrawal Time 0 hours 0 minutes 0 seconds [address] [facility] [place] [address]
[2016-11-03 18:56] LABS: BASOPHILS 0.4 %; BASOPHILS ABSOLUTE 0.05 10/3/uL (0.0-0.16); EOSINOPHILS 2.8 %; EOSINOPHILS ABSOLUTE 0.36 10/3/uL (0.0-0.53); HEMATOCRIT 41.1 % (36.0-48.0); IMMATURE GRANULOCYTES 1.2 %; IMMATURE GRANULOCYTES ABSOLUTE 0.15 10/3/uL (0.0-0.11); LYMPHOCYTES 26.7 %; LYMPHOCYTES ABSOLUTE 3.41 10/3/uL (0.67-4.30); MEAN CORPUS HGB CONC 34.1 g/dL (32.0-36.0); MEAN CORPUSCULAR HEMOGLOB 28.7 pg (26.0-34.0); MEAN PLATELET VOLUME 9.6 fL (9.2-13.0); MONOCYTES 14.5 %; MONOCYTES ABSOLUTE 1.85 10/3/uL (0.21-1.20); NEUTROPHILS 54.4 %; NEUTROPHILS ABSOLUTE 6.93 10/3/uL (2.02-8.40); PLATELET COUNT 436 10/3/uL (150-400); RBC DISTRIBUTION WIDTH 15.1 % (12.0-16.0); RED CELL COUNT 4.87 10/6/uL (4.0-5.6); WHITE BLOOD CELLS 12.8 10/3/uL (4.5-10.5)
[2016-11-03 18:57] LABS: MANUAL DIFF NO %; MEAN CORPUSCULAR VOLUME 84.4 fL (80-100)
[2016-11-03 19:00] LABS: ASCORBIC ACID (UR NOT ORDER) NEG (NEG); BILIRUBIN, URINE NEGATIVE (NEG); ER URINALYSIS TAT 0 Hrs 08 Mins; KETONE, URINE NEGATIVE (NEG); LEUKOCYTE ESTERASE(NOT OR MOD (NEG); NITRITE (URINE) NEG (NEG); WBC (NOT ORDERED) (RFLEX) 14 (0-5)
[~2016-11-03 19:02] MED LIST changes: +B121000P IM/SC; +ENDOCET1 TA1 PO; +FLEX PO; +FLUCON150 PO; +INCRUSE ELLI62.5 MCG INH; +KDUR20 PO; +NEXIUM20 M1 PO; +SUCR PO; +VENTOLIN HFA INH; +ZOFRANODT8 SL
[2016-11-03 19:04] LABS: INTERNATIONAL NORMAL RATI 1.1 UNITS (-); PROTIME (NOT ORD) 13.9 SEC (12.0-14.5)
[2016-11-03 19:12] LABS: A/G RATIO 0.9 (0.7-1.9); ALBUMIN 3.1 G/DL (3.5-5.0); BUN (BLOOD UREA NITROGEN) 6 MG/DL (6-23); CALCIUM, SERUM 8.5 MG/DL (8.5-10.4); CO2 (CARBON DIOXIDE) 29 MMOL/L (24-34); CREATININE 0.61 MG/DL (0.55-1.02); DIRECT BILIRUBIN 0.1 MG/DL (0.0-0.4); GFR AFRICAN AMERICAN 109 ML/MIN (>=60); GFR NON AFRICAN AMERICAN 94 ML/MIN (>=60); GLOBULIN 3.6 G/DL (2.5-4.1); GLUCOSE, SERUM 99 MG/DL (60-99); INDIRECT BILIRUBIN(NOT ORDER) 0.3 MG/DL (0.1-0.9); SGOT(AST) 12 U/L (5-40); SGPT(ALT) 16 U/L (5-65); SODIUM, SERUM 136 MMOL/L (135-148); TOTAL BILIRUBIN 0.4 MG/DL (0-1.2); TOTAL PROTEIN 6.7 G/DL (6.0-8.5)
[2016-11-03 19:20] LABS: ALKALINE PHOSPHATASE 161 U/L (45-117); CHLORIDE, SERUM 99 MMOL/L (96-112); POTASSIUM, SERUM 2.4 MMOL/L (3.5-5.3)
[2016-11-03] MEDS ORDERED: LEVSINTAB PO (20:14)
[2016-11-03] MEDS ORDERED: XANAX1 MG PO (20:14)
[2016-11-03] MEDS ORDERED: ADVAIR INH (20:14)
[2016-11-03] MEDS ORDERED: ENDOCET1 TA1 PO (20:15)
[2016-11-03] MEDS ORDERED: COMP10B PO (20:15)
[2016-11-03] MEDS ORDERED: ZOFRAN8 PO (20:16)
[2016-11-03] MEDS ORDERED: B121000P IM (20:18)
[2016-11-03] MEDS ORDERED: DURICEF PO (20:19)
[2016-11-03] MEDS ORDERED: REG5 PO (20:20)
[2016-11-03] MEDS ORDERED: NEUR300 PO (20:21)
[2016-11-03] MEDS ORDERED: COREG12 PO (20:21)
[2016-11-03] MEDS ORDERED: NEXIUM20 M1 PO (20:21)
[2016-11-03] MEDS ORDERED: INCRUSE ELLI62.5 MCG INH (20:21)
[2016-11-03] MEDS ORDERED: FERROCITE PO (20:22)
[2016-11-03] MEDS ORDERED: TRAZ50 PO (20:22)
[2016-11-03] MEDS ORDERED: COZAAR100 MG PO (20:23)
[2016-11-03] MEDS ORDERED: PR25 PO (20:23)
[2016-11-03] MEDS ORDERED: NORV10 PO (20:23)
[2016-11-04 06:46] LABS: BASOPHILS 0.4 %; BASOPHILS ABSOLUTE 0.04 10/3/uL (0.0-0.16); EOSINOPHILS 3.3 %; EOSINOPHILS ABSOLUTE 0.36 10/3/uL (0.0-0.53); HEMATOCRIT 37.8 % (36.0-48.0); HEMOGLOBIN 12.6 g/dL (12.0-16.0); IMMATURE GRANULOCYTES 0.9 %; LYMPHOCYTES 25.9 %; LYMPHOCYTES ABSOLUTE 2.86 10/3/uL (0.67-4.30); MEAN CORPUS HGB CONC 33.3 g/dL (32.0-36.0); MEAN CORPUSCULAR HEMOGLOB 28.3 pg (26.0-34.0); MEAN CORPUSCULAR VOLUME 84.8 fL (80-100); MEAN PLATELET VOLUME 9.5 fL (9.2-13.0); MONOCYTES 18.2 %; MONOCYTES ABSOLUTE 2.01 10/3/uL (0.21-1.20); NEUTROPHILS 51.3 %; NEUTROPHILS ABSOLUTE 5.67 10/3/uL (2.02-8.40); PLATELET COUNT 404 10/3/uL (150-400); RBC DISTRIBUTION WIDTH 15.3 % (12.0-16.0); RED CELL COUNT 4.46 10/6/uL (4.0-5.6)
[2016-11-04 06:48] LABS: MANUAL DIFF NO %
[2016-11-04 07:12] LABS: A/G RATIO 0.8 (0.7-1.9); ALBUMIN 2.6 G/DL (3.5-5.0); BUN (BLOOD UREA NITROGEN) 4 MG/DL (6-23); CALCIUM, SERUM 8.1 MG/DL (8.5-10.4); CHLORIDE, SERUM 107 MMOL/L (96-112); CREATININE 0.52 MG/DL (0.55-1.02); GFR AFRICAN AMERICAN 115 ML/MIN (>=60); GFR NON AFRICAN AMERICAN 100 ML/MIN (>=60); GLOBULIN 3.2 G/DL (2.5-4.1); GLUCOSE, SERUM 103 MG/DL (60-99); SGOT(AST) 12 U/L (5-40); SGPT(ALT) 14 U/L (5-65); SODIUM, SERUM 139 MMOL/L (135-148); TOTAL BILIRUBIN 0.7 MG/DL (0-1.2); TOTAL PROTEIN 5.8 G/DL (6.0-8.5)
[2016-11-04 07:13] LABS: ALKALINE PHOSPHATASE 137 U/L (45-117); CO2 (CARBON DIOXIDE) 24 MMOL/L (24-34); PHOSPHORUS, SERUM 2.5 MG/DL (2.5-4.5); POTASSIUM, SERUM 2.8 MMOL/L (3.5-5.3)
[2016-11-04 07:34] LABS: PROCALCITONIN <0.05 ng/mL (<0.5)
[2016-11-04 12:00] LABS: HEMATOCRIT 37.8 % (36.0-48.0); HEMOGLOBIN 12.6 g/dL (12.0-16.0)
[2016-11-04 17:04] LABS: HEMATOCRIT 36.7 % (36.0-48.0); HEMOGLOBIN 11.9 g/dL (12.0-16.0)
[2016-11-04 22:15] LABS: HEMATOCRIT 34.8 % (36.0-48.0); HEMOGLOBIN 11.4 g/dL (12.0-16.0)
[2016-11-05 05:57] LABS: BASOPHILS 0.5 %; BASOPHILS ABSOLUTE 0.05 10/3/uL (0.0-0.16); EOSINOPHILS 4.2 %; HEMOGLOBIN 13.3 g/dL (12.0-16.0); IMMATURE GRANULOCYTES 1.1 %; LYMPHOCYTES 24.9 %; LYMPHOCYTES ABSOLUTE 2.36 10/3/uL (0.67-4.30); MEAN CORPUS HGB CONC 32.9 g/dL (32.0-36.0); MEAN CORPUSCULAR HEMOGLOB 28.7 pg (26.0-34.0); MEAN CORPUSCULAR VOLUME 87.3 fL (80-100); MEAN PLATELET VOLUME 9.8 fL (9.2-13.0); MONOCYTES ABSOLUTE 1.52 10/3/uL (0.21-1.20); NEUTROPHILS 53.3 %; NEUTROPHILS ABSOLUTE 5.05 10/3/uL (2.02-8.40); PLATELET COUNT 409 10/3/uL (150-400); RBC DISTRIBUTION WIDTH 15.5 % (12.0-16.0); RED CELL COUNT 4.63 10/6/uL (4.0-5.6); WHITE BLOOD CELLS 9.5 10/3/uL (4.5-10.5)
[2016-11-05 05:59] LABS: HEMATOCRIT 40.4 % (36.0-48.0); MANUAL DIFF NO %
[2016-11-05 06:00] LABS: INTERNATIONAL NORMAL RATI 1.1 UNITS (-)
[2016-11-05 06:19] LABS: A/G RATIO 0.7 (0.7-1.9); ALBUMIN 2.7 G/DL (3.5-5.0); ALKALINE PHOSPHATASE 134 U/L (45-117); BUN (BLOOD UREA NITROGEN) 1 MG/DL (6-23); CALCIUM, SERUM 8.5 MG/DL (8.5-10.4); CHLORIDE, SERUM 111 MMOL/L (96-112); CO2 (CARBON DIOXIDE) 23 MMOL/L (24-34); CREATININE 0.53 MG/DL (0.55-1.02); GFR AFRICAN AMERICAN 115 ML/MIN (>=60); GFR NON AFRICAN AMERICAN 99 ML/MIN (>=60); GLOBULIN 3.8 G/DL (2.5-4.1); GLUCOSE, SERUM 98 MG/DL (60-99); POTASSIUM, SERUM 3.6 MMOL/L (3.5-5.3); SGOT(AST) 13 U/L (5-40); SGPT(ALT) 12 U/L (5-65); SODIUM, SERUM 142 MMOL/L (135-148); TOTAL BILIRUBIN 0.3 MG/DL (0-1.2); TOTAL PROTEIN 6.5 G/DL (6.0-8.5)
[2016-11-05 06:20] LABS: PHOSPHORUS, SERUM 1.3 MG/DL (2.5-4.5)
[2016-11-06 06:56] LABS: BUN (BLOOD UREA NITROGEN) 2 MG/DL (6-23); CALCIUM, SERUM 8.1 MG/DL (8.5-10.4); CHLORIDE, SERUM 106 MMOL/L (96-112); CO2 (CARBON DIOXIDE) 25 MMOL/L (24-34); CREATININE 0.57 MG/DL (0.55-1.02); GFR AFRICAN AMERICAN 112 ML/MIN (>=60); GFR NON AFRICAN AMERICAN 97 ML/MIN (>=60); POTASSIUM, SERUM 3.2 MMOL/L (3.5-5.3); SODIUM, SERUM 140 MMOL/L (135-148)
[2016-11-06 06:58] LABS: GLUCOSE, SERUM 139 MG/DL (60-99)
[2016-11-07 07:52] LABS: BUN (BLOOD UREA NITROGEN) 4 MG/DL (6-23); CHLORIDE, SERUM 103 MMOL/L (96-112); CO2 (CARBON DIOXIDE) 27 MMOL/L (24-34); CREATININE 0.55 MG/DL (0.55-1.02); GFR AFRICAN AMERICAN 113 ML/MIN (>=60); GFR NON AFRICAN AMERICAN 98 ML/MIN (>=60); GLUCOSE, SERUM 112 MG/DL (60-99); POTASSIUM, SERUM 3.6 MMOL/L (3.5-5.3); SODIUM, SERUM 140 MMOL/L (135-148)
[2016-11-07] MEDS ORDERED: FLORASTOR250 MG PO (12:13)
[2016-11-07] MEDS ORDERED: VANCOCIN HCL125 MG PO (12:15)
== END 2016-11-07 15:54 | disposition home or self-care (01) | DRG 372 ==
LOC: ER 19:02 → 5SO 23:19 → 2SO 11-04 01:48
PROVIDERS: Emergency Medicine; Internal Medicine Gastroenterology; Internal Medicine Pulmonary Disease; Nurse Practitioner Family; Student in an Organized Health Care Education/Training Program
PROC: 0DB98ZX Excision of Duodenum, Via Natural or Artificial Opening Endoscopic, Diagnostic (ICD-10-PCS; principal; 2016-11-05 07:00)
DX: A04.7 Enterocolitis due to Clostridium difficile (principal); F13.20 Sedative, hypnotic or anxiolytic dependence, uncomplicated; J44.9 Chronic obstructive pulmonary disease, unspecified; F11.20 Opioid dependence, uncomplicated; N39.0 Urinary tract infection, site not specified; K31.84 Gastroparesis; E87.6 Hypokalemia; I10 Essential (primary) hypertension; K29.50 Unspecified chronic gastritis without bleeding; K29.80 Duodenitis without bleeding; K44.9 Diaphragmatic hernia without obstruction or gangrene; K21.9 Gastro-esophageal reflux disease without esophagitis; F41.9 Anxiety disorder, unspecified; M06.9 Rheumatoid arthritis, unspecified; B96.20 Unspecified Escherichia coli [E. coli] as the cause of diseases classified elsewhere; F32.9 Major depressive disorder, single episode, unspecified; G89.4 Chronic pain syndrome; E78.00 Pure hypercholesterolemia, unspecified; Z98.890 Other specified postprocedural states; Z88.1 Allergy status to other antibiotic agents; Z88.8 Allergy status to other drugs, medicaments and biological substances
CPT/HCPCS: 74177; 80048; 80053; 81001; 82248; 82272; 82962; 83690; 83735; 84100; 84132; 84145; 84443; 85014; 85018; 85025; 85610; 87040; 87077; 87086; 87186; 87493; 87493-59; 88305; 88342; 94640; 96374; 97162-GP; 99285; A9270-GY; C9113; G8978-CL-GP; G8979-CK-GP; J1170; J1956; J2405; J2550; J2765; Q9967